=== PATIENT | female | born 1935 | race Caucasian/White ===

== ENCOUNTER 2016-04-26 15:03 | Emergency (ER) | payer OTHER ==
[2016-04-26 16:09] LABS: MANUAL DIFF NEEDED? NO
[2016-04-26 16:13] LABS: BASO% 0.2 % (0.0-0.8); EOS# 0.01 X1000 (0.0-0.7); EOS% 0.1 % (0.0-10.0); HEMATOCRIT 40.1 % (37.0-47.0); HEMOGLOBIN 13.9 g/dL (12.0-16.0); LYMPH# 0.97 X1000 (1.2-3.4); LYMPH% 9.2 % (20.5-51.1); MCH 30.6 PG (27-31); MCHC 34.7 g/dL (33-37); MCV 88.3 FL (81-99); MONO# 1.32 X1000 (0.11-0.59); MONO% 12.5 % (1.7-9.3); MPV 11.4 FL (7.4-10.4); PLT 203 X1000 (130-400); RBC 4.54 XMIL (4.2-5.4)
--- NOTE | 2016-04-26 16:24 | PROVIDER DOCUMENTATION ---
HPI-General Adult - General Source: patient - History of Present Illness -Gen Adult Nature of Presenting Problems: Pt is a 80 yof who came to the ED with a cc of weakness and falling. Pt has dementia and falls about three times a week. Location of Pain/Injury: reports: none Pain Radiation: reports: no radiation Quality of Pain: reports: none Onset/Duration: reports: unsure Modifying Factors: improves with: movement Associated Symptoms: reports: weakness Similar Symptoms Previously?: Yes Recently seen or treated by another doctor?: No <Gaby Noe - Last Filed: 04/26/16 17:58> <Koko Olsen - Last Filed: 04/26/16 18:45> - General Chief Complaint: Weakness Stated Complaint: WEAKNESS Time Seen by Provider: 04/26/16 15:15 Allergies/Adverse Reactions: Patient Allergies Allergy/AdvReac Type Severity Reaction Status Date / Time Penicillins Allergy ANAPHYLAXIS Verified 04/26/16 15:26 prednisone Allergy VOMITING Verified 04/26/16 15:26 Home Medications: Home Medication List Medication Instructions Recorded Confirmed Last Taken Type Clonazepam 2 mg PO PRN PRN 04/26/16 04/26/16 Unknown History Escitalopram [Lexapro] 10 mg PO DAILY 04/26/16 04/26/16 04/26/16 History Levothyroxine [Synthroid] 50 microgm PO DAILY 04/26/16 04/26/16 04/26/16 History Metoprolol Succinate E.r. [Toprol 25 mg PO DAILY 04/26/16 04/26/16 04/26/16 History Xl] Nitrofurantoin Monohyd/M-Cryst 100 mg PO BID #20 capsule 04/26/16 Unknown Rx [Macrobid 100 mg Capsule] Review of Systems - Adult - REVIEW OF SYSTEMS - ADULT Constitutional: denies: chills, fever Eyes: denies: decreased vision, double vision Ears, Nose, Mouth & Throat: reports: no symptoms reported Cardiovascular: denies: heart murmur, orthopnea Respiratory: reports: no symptoms reported Gastrointestinal: reports: no symptoms reported Genitourinary: reports: no symptoms reported Musculoskeletal: reports: other (general weakness). denies: frequent leg cramps , joint swelling Integumentary: reports: no symptoms reported Neurological: reports: no symptoms reported Psychiatric: reports: no symptoms reported Endocrine: reports: no symptoms reported Hematologic/Lymphatic: reports: no symptoms reported Allergic/Immunologic: reports: no symptoms reported All Other Systems: Reviewed and Negative <Gaby Noe - Last Filed: 04/26/16 17:58> Past History - Adult - PAST MEDICAL HISTORY-ADULT Review of Records: reports: Old Records Reviewed, Nursing Assessment Review Major Childhood Illnesses: reports: denies history Cardiovascular: reports: other (cardiac disorder) Respiratory: reports: COPD Gastrointestinal: reports: GERD Obstetrical/Gynecological: reports: denies history Genitourinary: reports: denies history Musculoskeletal: reports: denies history Neurological: reports: dementia Endocrine/Immune: reports: thyroid disorder Other Conditions: reports: denies history - PRIOR SURGERIES/PROCEDURES Surgical/Procedure History: reports: colonoscopy, hysterectomy, orthopedic ( extremity) (left knee scope) - IMMUNIZATION STATUS Childhood Immunizations: See Nurse Assessment Flu Vaccine: UTD - FAMILY HISTORY Family History: reviewed, not pertinent <Gaby Noe - Last Filed: 04/26/16 17:58> Physical Exam-General - PHYSICAL EXAM-ADULT Initial Vital Signs Reviewed: Yes - CONSTITUTIONAL General Appearance: alert, no apparent distress, thin - EYES Eyes: PERRL/EOMI, pink conjunctivae - HEAD, EARS, NOSE, MOUTH & THROAT HENMT: normocephalic/atraumatic, moist mucous membranes, normal ENT inspection - NECK Neck: non-tender - RESPIRATORY Respiratory: chest non-tender, lungs clear - CARDIOVASCULAR Cardiovascular: normal peripheral pulses, regular rate, rhythm - GASTROINTESTINAL (ABDOMEN) Abdominal Exam: normal bowel sounds, non tender, soft - LYMPHATIC Lymphatic: no adenopathy - MUSCULOSKELETAL Back Exam: normal inspection, no CVA tenderness Extremity: normal range of motion - SKIN Integumentary: normal color - NEUROLOGIC Neurologic: grossly normal - PSYCHIATRIC Psych/Mental Status: normal mood/affect, normal thought content, normal thought process, oriented x 3 <Gaby Noe - Last Filed: 04/26/16 17:58> Progress - PLAN OF CARE/RESULTS Progress/Plan/Lab Results: Vital Signs - 24 hr 04/26/16 15:08 Temperature 98.5 F Pulse Rate 88 Respiratory 18 Rate Blood Pressure 115/76 O2 Sat by Pulse 100 Oximetry Orders Category Date Time Status CBC WITH ELECTRONIC DIFF [HEME] Stat Lab 04/26/16 16:00 Completed CMP [COMPREHENSIVE METABOLIC PANEL] [CHEM] Stat Lab 04/26/16 16:00 Completed UA NIMS W/REFLEX CULT [URINALYSIS] Stat Lab 04/26/16 15:46 Uncollected Laboratory Tests 04/26/16 04/26/16 16:00 16:00 WBC 10.53 RBC 4.54 Hgb 13.9 Hct 40.1 MCV 88.3 MCH 30.6 MCHC 34.7 RDW Std Deviation 13.2 Plt Count 203 MPV 11.4 H Immature Gran % (Auto) 0.0 Neut % (Auto) 78.0 H Lymph % (Auto) 9.2 L [place] % (Auto) 12.5 H Eos % (Auto) 0.1 Baso % (Auto) 0.2 Immature Gran # (Auto) 0.00 Neut # (Auto) 8.21 H Lymph # (Auto) 0.97 L [place] # (Auto) 1.32 H Eos # (Auto) 0.01 Baso # (Auto) 0.02 Sodium 138 Potassium 3.6 Chloride 99 Carbon Dioxide 27 Anion Gap 12 BUN 8 Creatinine 1.0 H Estimated GFR/1.73 m2 53 BUN/Creatinine Ratio 8 Glucose 127 H Calculated Osmolality 276 Calcium 8.7 L Total Bilirubin 1.23 H AST 16 ALT 7 L Alkaline Phosphatase 67 Total Protein 7.2 Albumin 4.0 Globulin 3.2 Albumin/Globulin Ratio 1.3 - CHANGE OF SHIFT REPORT (ED Provider) Report Given and Care Transferred to:: Dr. Nguyễn Time of Transfer: 17:59 <Gaby Noe - Last Filed: 04/26/16 17:58> - PLAN OF CARE/RESULTS Progress/Plan/Lab Results: Vital Signs - 24 hr 04/26/16 04/26/16 15:08 17:39 Temperature 98.5 F 98.9 F Pulse Rate 88 81 Respiratory 18 18 Rate Blood Pressure 115/76 114/56 O2 Sat by Pulse 100 100 Oximetry Orders Category Date Time Status CBC WITH ELECTRONIC DIFF [HEME] Stat Lab 04/26/16 16:00 Completed CMP [COMPREHENSIVE METABOLIC PANEL] [CHEM] Stat Lab 04/26/16 16:00 Completed UA NIMS W/REFLEX CULT [URINALYSIS] Stat Lab 04/26/16 17:28 Completed Laboratory Tests 04/26/16 04/26/16 04/26/16 16:00 16:00 17:28 WBC 10.53 RBC 4.54 Hgb 13.9 Hct 40.1 MCV 88.3 MCH 30.6 MCHC 34.7 RDW Std Deviation 13.2 Plt Count 203 MPV 11.4 H Immature Gran % (Auto) 0.0 Neut % (Auto) 78.0 H Lymph % (Auto) 9.2 L [place] % (Auto) 12.5 H Eos % (Auto) 0.1 Baso % (Auto) 0.2 Immature Gran # (Auto) 0.00 Neut # (Auto) 8.21 H Lymph # (Auto) 0.97 L [place] # (Auto) 1.32 H Eos # (Auto) 0.01 Baso # (Auto) 0.02 Sodium 138 Potassium 3.6 Chloride 99 Carbon Dioxide 27 Anion Gap 12 BUN 8 Creatinine 1.0 H Estimated GFR/1.73 m2 53 BUN/Creatinine Ratio 8 Glucose 127 H Calculated Osmolality 276 Calcium 8.7 L Total Bilirubin 1.23 H AST 16 ALT 7 L Alkaline Phosphatase 67 Total Protein 7.2 Albumin 4.0 Globulin 3.2 Albumin/Globulin Ratio 1.3 Urine Source CATH Urine Color YELLOW Urine Turbidity CLEAR Urine pH 6.5 Ur Specific [place] 1.013 Urine Protein TRACE A Ur Glucose (Stick) NEGATIVE Ur Ketones (Stick) TRACE A Urine Blood SMALL A Urine Nitrite NEGATIVE Urine Bilirubin NEGATIVE Urobilinogen Dipstick 2 A Urine Leukocytes NEGATIVE Urine WBC (Auto) <10 Urine RBC (Auto) <10 U Epithel Cells (Auto) <10 Urine Bacteria (Auto) NEGATIVE - CHANGE OF SHIFT REPORT (ED Provider) Report Given and Care Transferred to:: Dr. Nguyễn Time of Transfer: 18:00 Items Pending: Labs <Koko Olsen - Last Filed: 04/26/16 18:45> Departure <Gaby Noe - Last Filed: 04/26/16 17:58> - Departure Time of Disposition Order: 18:44 Certified Medical Emergency: Emergent <Koko Olsen - Last Filed: 04/26/16 18:45> - Departure DIAGNOSIS: UTI (urinary tract infection) Qualifiers: Urinary tract infection type: site unspecified Hematuria presence: without hematuria Qualified Code(s): N39.0 - Urinary tract infection, site not specified Disposition: HOME 01 Condition: Stable Additional Instructions: ED Follow Up Instructions: You have been treated by a care provider in the Emergency Department. These instructions are being provided to you so you can have an understanding of how to care for yourself upon discharge. Upon discharge from the Emergency Department, you are responsible for making arrangements for follow-up care by a physician of your choice. Take all prescribed medications as directed. Return to the Emergency Department immediately for any new or worsening symptoms. You may call the Physician Referral phone number at [phone] to obtain a list of Physicians who are taking new patients. Prescriptions: Nitrofurantoin Monohyd/M-Cryst [Macrobid 100 mg Capsule] 100 mg PO BID #20 capsule Attestation - Scribe Verification/Attestation Scribe:: Gaby Noe Acting as Scribe for:: Mp Deleon Scribe documention review:: This chart was documented by a scribe and accurately reflects the service the provider performed and the decisions made by the provider. - Scribe Verification/Attestation #2 Shift Change Time: 17:59 Scribe Name: Koko Olsen Acting as Scribe for:: Joao Nguyễn <Gaby Noe - Last Filed: 04/26/16 17:58> - Scribe Verification/Attestation Scribe:: Koko Olsen Acting as Scribe for:: Joao Nguyễn Scribe documention review:: This chart was documented by a scribe and accurately reflects the service the provider performed and the decisions made by the provider. <Koko Olsen - Last Filed: 04/26/16 18:45> Physician Attestation
[2016-04-26 16:36] LABS: CALCIUM 8.7 mg/dL (8.8-10.2); POTASSIUM 3.6 mmol/L (3.5-5.1); TOTAL BILIRUBIN 1.23 mg/dL (0.20-1.00); TOTAL PROTEIN 7.2 g/dL (6.3-8.3)
[2016-04-26 17:45] LABS: URINE CULTURE NEEDED? NO; URINE MICRO REVIEW NEEDED? NO; URINE SOURCE CATH
[2016-04-26 18:09] LABS: BILIRUBIN URINE NEGATIVE (NEGATIVE); BLOOD URINE SMALL (NEGATIVE); COLOR YELLOW; GLUCOSE URINE NEGATIVE (NEGATIVE); LEUKOCYTES URINE NEGATIVE (NEGATIVE); NITRITE URINE NEGATIVE (NEGATIVE); PH URINE 6.5; PROTEIN URINE TRACE mg/dL (NEGATIVE); SP GRAVITY URINE 1.013; TURBIDITY URINE CLEAR (CLEAR); UROBILINOGEN URINE 2 mg/dL (NORMAL)
[2016-04-26 18:15] LABS: UR EPITHELIAL CELLS <10 /HPF (<10); URINE BACTERIA NEGATIVE /HPF; URINE RBC <10 /HPF (<10); URINE WBC <10 /HPF (<10)
[2016-04-26 18:49] VITALS: BP 110/48
== END 2016-04-26 19:04 | disposition home or self-care (01) ==
LOC: EDBD → ED 15:03
DX: N39.0 Urinary tract infection, site not specified (principal); R53.1 Weakness; J44.9 Chronic obstructive pulmonary disease, unspecified; E07.9 Disorder of thyroid, unspecified; F03.90 Unspecified dementia, unspecified severity, without behavioral disturbance, psychotic disturbance, mood disturbance, and anxiety; Z79.899 Other long term (current) drug therapy; W19.XXXA Unspecified fall, initial encounter
CPT/HCPCS: 80053; 81001; 82948; 85025

== ENCOUNTER 2016-04-29 10:42 | Emergency (ER) | payer OTHER ==
--- NOTE | 2016-04-29 12:19 | Diag Imaging Result Document ---
PROCEDURE NAME: WRIST COMPLETE LEFT - 04/29/2016 LEFT WRIST, THREE VIEWS: INDICATION: Injury. FINDINGS: There are extensive degenerative changes about the wrist including calcification of the triangular fibrocartilage. Probable disruption of the scapholunate ligament, and erosive change involving the distal scaphoid, trapezium, and first metacarpal compartment. 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 There is a small area of linear sclerosis involving the distal radius which likely represents a nondisplaced slightly impacted fracture of the distal radius. There is no dislocation. IMPRESSION: 1. Suspect a slightly impacted nondisplaced distal radial fracture. 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
[2016-04-29] MEDS ORDERED: ZOFRAN ODT PO ONE (12:31)
[2016-04-29] MEDS ORDERED: NORCO-5 PO ONE (12:31)
[2016-04-29 12:48] LABS: URINE CULTURE PL NEEDED? NO; URINE SOURCE CATH
[2016-04-29 12:54] LABS: BILIRUBIN URINE NEGATIVE (NEGATIVE); BLOOD URINE 2+ (NEGATIVE); CLARITY CLEAR (CLEAR); COLOR YELLOW; GLUCOSE URINE NEGATIVE (NEGATIVE); LEUKOCYTES URINE TRACE (NEGATIVE); NITRITE URINE NEGATIVE (NEGATIVE); PH URINE 6.5; PROTEIN URINE TRACE mg/dL (NEGATIVE); SP GRAVITY URINE 1.015; UROBILINOGEN URINE NORMAL
[2016-04-29 13:14] LABS: URINE EPITHELIAL CELLS <10 /HPF (<10); URINE RBC <10 /HPF (<10); URINE WBC <10 /HPF (<10)
--- NOTE | 2016-04-29 13:32 | PROVIDER DOCUMENTATION ---
HPI-Musculoskeletal Pain/Inj <Albino Crespo - Last Filed: 04/29/16 13:31> - GENERAL Source: family - HX OF PRESENT ILLNESS-MUSKULOSKELTAL Quality of Pain: reports: aching Severity in ED: mild Onset/Duration: 2 days ago Timing: still present, gone now, intermittent Any recent injury?: Yes (fall ) Locality of Occurance: Home Similar Symptoms Previously?: Yes Recently seen or treated by another doctor?: No - FALL INJURY Location of Pain/Injury: reports: upper extremity (L wrist) Pain Radiation: reports: no radiation Reason for Fall: reports: unknown Symptoms prior to fall:: reports: none Loss of Consciousness: no loss of consciousness Injury Associated Symptoms: reports: other (L wrist pain) - UPPER EXTREMITY PAIN/INJURY Extremities Pain Location: wrist: left (pain ) Context / Method of Injury: reports: fell Associated Symptoms: reports: weakness in upper ext (L wrist). denies: muscle spasms, numbness in upper ext, sensory/motor loss, tingling in upper ext <Diana Saldana - Last Filed: 04/29/16 13:43> - GENERAL Chief Complaint: Extremity Injury Stated Complaint: FALL/EXTREMITY INJ Time Seen by Provider: 04/29/16 11:23 - HX OF PRESENT ILLNESS-MUSKULOSKELTAL Nature of Presenting Problem: Pt is 80 y/o F presents to the ED with L wrist pain. Pt's family states Pt fell. Pt's family states recently UTI and think that is why she fell. Pt's family states hx of dementia. (Diana Saldana) Review of Systems - Adult - REVIEW OF SYSTEMS - ADULT Constitutional: reports: no symptoms reported Eyes: reports: no symptoms reported Ears, Nose, Mouth & Throat: reports: no symptoms reported Cardiovascular: reports: no symptoms reported Respiratory: reports: no symptoms reported Gastrointestinal: reports: no symptoms reported Genitourinary: reports: no symptoms reported Musculoskeletal: reports: other (L wrist pain). denies: bone pain, joint pain, neck pain Integumentary: reports: no symptoms reported Neurological: reports: no symptoms reported Psychiatric: reports: no symptoms reported Endocrine: reports: no symptoms reported Hematologic/Lymphatic: reports: no symptoms reported Allergic/Immunologic: reports: no symptoms reported All Other Systems: Reviewed and Negative <Diana Saldana - Last Filed: 04/29/16 13:43> Past History - Adult - PAST MEDICAL HISTORY-ADULT Major Childhood Illnesses: reports: denies history Cardiovascular: reports: other (cardiac disorder) Respiratory: reports: COPD Gastrointestinal: reports: GERD Obstetrical/Gynecological: reports: denies history Genitourinary: reports: denies history Musculoskeletal: reports: denies history Neurological: reports: dementia Endocrine/Immune: reports: thyroid disorder Other Conditions: reports: denies history - PRIOR SURGERIES/PROCEDURES Surgical/Procedure History: reports: colonoscopy, hysterectomy, orthopedic ( extremity) (left knee scope) - IMMUNIZATION STATUS Childhood Immunizations: See Nurse Assessment Flu Vaccine: UTD - FAMILY HISTORY Family History: reviewed, not pertinent <Albino Crespo - Last Filed: 04/29/16 13:31> - PAST MEDICAL HISTORY-ADULT Review of Records: reports: Nursing Assessment Review, Medications Reviewed, Social history reviewed & non-contributory. Major Childhood Illnesses: reports: denies history Cardiovascular: reports: denies history Respiratory: reports: COPD Gastrointestinal: reports: GERD Obstetrical/Gynecological: reports: denies history Genitourinary: reports: denies history Musculoskeletal: reports: denies history Neurological: reports: dementia Endocrine/Immune: reports: denies history Other Conditions: reports: denies history - PRIOR SURGERIES/PROCEDURES Surgical/Procedure History: reports: cholecystectomy, hysterectomy - IMMUNIZATION STATUS Childhood Immunizations: See Nurse Assessment Flu Vaccine: See Nurse Assessment - FAMILY HISTORY Family History: reviewed, not pertinent - SOCIAL HISTORY Smoking: cigarettes, greater than 1 pack/day Provider spent 3-5 mins advising pt. on dangers of tobacco.: discussed smoking cessation Substance Use: denies Living Situation: family <Diana Saldana - Last Filed: 04/29/16 13:43> Physical Exam-Injury Related - Physical Exam-Injury Related Initial Vital Signs Reviewed: Yes General Appearance: appears well, alert, no apparent distress Eyes: PERRL/EOMI, pink conjunctivae, fundi clear, no AV nicking Head, Ears, Nose, Mouth & Throat: normocephalic/atraumatic, moist mucous membranes, normal ENT inspection, TMs normal, pharynx normal Neck: non-tender, full range of motion, supple, normal inspection Respiratory: chest non-tender, lungs clear, normal breath sounds, no pleuratic chest pain, no respiratory distress, no accessory muscle use Cardiovascular: normal peripheral pulses, regular rate, rhythm, no edema, no gallop, no JVD, no murmur Abdominal Exam: normal bowel sounds, non tender, soft, no organomegaly, no pulsatile mass Lymphatic: no adenopathy Back Exam: normal inspection, no CVA tenderness, no vertebral tenderness Extremity: normal range of motion (painful ROM to L wrist), no pedal edema, no calf tenderness, normal capillary refill, swelling (L wrist), tenderness (L wrist) Integumentary: normal color, warm/dry, swelling (L wrist) Neurologic: grossly normal Psych/Mental Status: normal mood/affect <Diana Saldana - Last Filed: 04/29/16 13:43> Progress <Albino Crespo - Last Filed: 04/29/16 13:31> - XRAY 1 XRAY: Left XRAY Study: Wrist Impression: Abnormal (CPPD arthropathy and erosive OA) XRAY Interpretation: suspect nondispl, sl impacted frx distal radius. <Diana Saldana - Last Filed: 04/29/16 13:43> - PLAN OF CARE/RESULTS Progress/Plan/Lab Results: Laboratory Tests 04/29/16 12:00 Urine Source CATH Urine Color YELLOW Urine Clarity CLEAR Urine pH 6.5 Ur Specific [place] 1.015 Urine Protein TRACE A Urine Ketones TRACE Urine Blood 2+ A Urine Nitrite NEGATIVE Urine Bilirubin NEGATIVE Urine Urobilinogen NORMAL Urine Microscopic RBC <10 Urine WBC TRACE A Urine Microscopic WBC <10 Ur Epithelial Cells <10 Urine Glucose NEGATIVE Orders Category Date Time Status Arm Sling DIRECTED Care 04/29/16 12:31 Active OCL Splint DIRECTED Care 04/29/16 12:31 Active WRIST COMPLETE LEFT [RAD] Stat Exams 04/29/16 11:[address] W/POSS RFLX CULT [URINALYSIS] Stat Lab 04/29/16 12:00 Completed Hydrocodone/APAP 5 mg/325 mg [[place]-5] Med 04/29/16 12:31 Discontinued 1 each PO NOW ONE Ondansetron Odt [Zofran Odt] Med 04/29/16 12:31 Discontinued 4 mg PO NOW ONE Vital Signs - 24 hr 04/29/16 11:00 Temperature 97.8 F Pulse Rate 79 Respiratory 18 Rate Blood Pressure 99/58 O2 Sat by Pulse 99 Oximetry (Diana Saldana) Departure - Departure Time of Disposition Order: 13:31 Certified Medical Emergency: Urgent <Albino Crespo - Last Filed: 04/29/16 13:31> - Departure Time of Disposition Order: 13:43 Certified Medical Emergency: Emergent <Diana Saldana - Last Filed: 04/29/16 13:43> - Departure DIAGNOSIS: Distal radius fracture, left Qualifiers: Encounter type: initial encounter Fracture type: closed Fracture morphology: other fracture Qualified Code(s): S52.592A - Other fractures of lower end of left radius, initial encounter for closed fracture Disposition: HOME 01 Condition: Good Additional Instructions: Take medication as prescribed. Rest and elevate wrist. Follow up with an orthopedist. ED Follow Up Instructions: You have been treated by a care provider in the Emergency Department. These instructions are being provided to you so you can have an understanding of how to care for yourself upon discharge. Upon discharge from the Emergency Department, you are responsible for making arrangements for follow-up care by a physician of your choice. Take all prescribed medications as directed. Return to the Emergency Department immediately for any new or worsening symptoms. You may call the Physician Referral phone number at [phone] to obtain a list of Physicians who are taking new patients. Prescriptions: Hydrocodone/APAP 7.5 mg/325 mg [[place]-7.5] 1 each PO Q6H PRN PRN #12 tablet PRN Reason: Pain Ondansetron Odt [Zofran 4 mg Odt] 4 mg PO Q6H PRN PRN #20 tablet PRN Reason: Nausea Referrals: Mohsen Moore MD [Primary Care Provider] - Osman Ahmadi MD [STAFF PHYSICIAN] - Attestation - Physician/ AGUEDA Attestation Patient care was provided by Advanced Practice Provider:: Yes Advanced Practice Provider:: Albino Crespo Advanced Practice Provider documentation review:: The Mid-level provider documentation, treatment plan and medical decision making was reviewed by the physician who agrees with all treatment and medical decision making by the MLP. <Albino Crespo - Last Filed: 04/29/16 13:31> - Scribe Verification/Attestation Scribe:: Diana Saldana Acting as Scribe for:: Isaac Rodríguez Scribe documention review:: This chart was documented by a scribe and accurately reflects the service the provider performed and the decisions made by the provider. <Diana Saldana - Last Filed: 04/29/16 13:43> Physician Attestation
[2016-04-29 14:00] VITALS: BP 124/64
== END 2016-04-29 13:59 | disposition home or self-care (01) ==
LOC: P.ED 10:42
DX: S52.592A Other fractures of lower end of left radius, initial encounter for closed fracture (principal); M25.532 Pain in left wrist; M25.432 Effusion, left wrist; M62.81 Muscle weakness (generalized); J44.9 Chronic obstructive pulmonary disease, unspecified; F03.90 Unspecified dementia, unspecified severity, without behavioral disturbance, psychotic disturbance, mood disturbance, and anxiety; F17.210 Nicotine dependence, cigarettes, uncomplicated; Z71.6 Tobacco abuse counseling; W19.XXXA Unspecified fall, initial encounter
CPT/HCPCS: 81001